=== PATIENT | male | born 1950 | race Caucasian/White ===

== ENCOUNTER → 2019-09-15 | Outpatient (CLI) | payer MEDICARE ==
[2019-09-15 10:49] LABS: POTASSIUM 4.4 MMOL/L (3.6-5.0); SODIUM 139 MMOL/L (135-145)
[2019-09-15 10:50] LABS: ALANINE AMINOTRANSFERASE 53 U/L (0-55); ALBUMIN 4.8 GM/DL (3.2-4.5); ALKALINE PHOSPHATASE 56 U/L (40-136); BILIRUBIN,TOTAL 0.4 MG/DL (0.1-1.0); BUN/CREATININE RATIO 16; CALCIUM 10.3 MG/DL (8.5-10.1); CARBON DIOXIDE 26 MMOL/L (21-32); CHLORIDE 99 MMOL/L (98-107); CREATININE SERUM 1.47 MG/DL (0.60-1.30); GFR ESTIMATED 48; GLUCOSE 116 MG/DL (70-105); TOTAL PROTEIN 7.7 GM/DL (6.4-8.2)
[2019-09-15 14:51] LABS: CHOLESTEROL 161 MG/DL (< 200); HDL CHOLESTEROL 33 MG/DL (40-60); TRIGLYCERIDES 218 MG/DL (<150); VLDL CHOLESTEROL 44 MG/DL (5-40)
== END ==
LOC: LAB FS 08:40
PROVIDERS: ATTEND Family Medicine
DX: I10 Essential (primary) hypertension (principal)
CPT/HCPCS: 36415; 80053; 80061

== ENCOUNTER → 2019-10-07 | Outpatient (CLI) | payer MEDICARE ==
[2019-10-07 13:26] LABS: CALCIUM 9.9 MG/DL (8.5-10.1); CREATININE SERUM 1.35 MG/DL (0.60-1.30); POTASSIUM 4.6 MMOL/L (3.6-5.0)
== END ==
LOC: LAB FS 12:49
PROVIDERS: ATTEND Family Medicine
DX: R79.89 Other specified abnormal findings of blood chemistry (principal)
CPT/HCPCS: 36415; 80048

== ENCOUNTER → 2020-03-30 | Outpatient (CLI) | payer MEDICARE ==
[2020-03-31 15:39] LABS: ALANINE AMINOTRANSFERASE 96 U/L (0-55); ALBUMIN 4.6 GM/DL (3.2-4.5); ALKALINE PHOSPHATASE 73 U/L (40-136); BILIRUBIN,TOTAL 0.5 MG/DL (0.1-1.0); BUN/CREATININE RATIO 12; CALCIUM 9.3 MG/DL (8.5-10.1); CARBON DIOXIDE 25 MMOL/L (21-32); CHLORIDE 104 MMOL/L (98-107); CREATININE SERUM 1.87 MG/DL (0.60-1.30); GFR ESTIMATED 36; GLUCOSE 167 MG/DL (70-105); POTASSIUM 4.8 MMOL/L (3.6-5.0); SODIUM 139 MMOL/L (135-145); TOTAL PROTEIN 7.6 GM/DL (6.4-8.2)
== END ==
LOC: LAB FS 15:41
PROVIDERS: ATTEND Family Medicine
DX: I10 Essential (primary) hypertension (principal); R73.09 Other abnormal glucose
CPT/HCPCS: 36415; 80053; 83036; 84153

== ENCOUNTER → 2020-10-07 | Outpatient (CLI) | payer MEDICARE ==
[2020-10-07 11:11] LABS: ALANINE AMINOTRANSFERASE 78 U/L (0-55); ALBUMIN 4.8 GM/DL (3.2-4.5); ALKALINE PHOSPHATASE 74 U/L (40-136); BILIRUBIN,TOTAL 0.4 MG/DL (0.1-1.0); BUN/CREATININE RATIO 15; CALCIUM 9.6 MG/DL (8.5-10.1); CARBON DIOXIDE 26 MMOL/L (21-32); CHLORIDE 100 MMOL/L (98-107); CREATININE SERUM 1.49 MG/DL (0.60-1.30); GFR ESTIMATED 47; GLUCOSE 129 MG/DL (70-105); POTASSIUM 4.9 MMOL/L (3.6-5.0); SODIUM 135 MMOL/L (135-145); TOTAL PROTEIN 7.7 GM/DL (6.4-8.2)
[2020-10-07 15:42] LABS: CHOLESTEROL 176 MG/DL (< 200); HDL CHOLESTEROL 35 MG/DL (40-60); TRIGLYCERIDES 375 MG/DL (<150); VLDL CHOLESTEROL 75 MG/DL (5-40)
== END ==
LOC: LAB FS 09:11
PROVIDERS: ATTEND Family Medicine
DX: Z12.5 Encounter for screening for malignant neoplasm of prostate (principal); I10 Essential (primary) hypertension
CPT/HCPCS: 36415; 80053; 80061; 84153

== ENCOUNTER → 2021-01-02 | Outpatient (CLI) | payer MEDICARE ==
--- NOTE | 2021-01-02 12:11 | Diagnostic Imaging Report ---
INDICATION: BILATERAL KNEE PAIN TECHNIQUE: 3 views of the bilateral knees, and 10:49 AM CORRELATION STUDY: None FINDINGS: Right knee: There is marked joint space narrowing both medially and laterally. There is rather prominent marginal osteophyte formation. Some additional intraarticular calcified loose bodies are suggested. Rather large spur like formation superior pole of patella is present. Prominent suprapatellar joint effusion is noted with calcification. TECHNIQUE: Left knee demonstrates a similar but slightly less severe findings. This includes joint space narrowing more pronounced medially than laterally. Marginal osteophyte formation particularly medially. Spur like formation superior pole of patella with a lucency at its base may reflect an ununited spur. Small suprapatellar joint effusion present. IMPRESSION: 1. Rather markedly advanced multi compartment degenerative changes both knees right significantly greater than left. 2. Given the intertubercular calcification of the right knee, nonspecific. Can be seen with underlying inflammatory processes including with gout. Consideration for fluid aspiration would be recommended of the prominent suprapatellar right knee joint effusion. Additionally, consideration may be given to a followup MRI, particularly of the right knee. Dictated by: Dictated on workstation # [id number]
== END ==
LOC: RAD FS 10:30
PROVIDERS: ATTEND Nurse Practitioner
DX: M17.11 Unilateral primary osteoarthritis, right knee (principal); M17.12 Unilateral primary osteoarthritis, left knee

== ENCOUNTER → 2021-01-10 | Outpatient (CLI) | payer MEDICARE ==
--- NOTE | 2021-01-10 12:44 | Diagnostic Imaging Report ---
Exam: CT right knee without contrast. Date: January 10, 2021. Indication: 70-year-old male, right knee pain. Surgical planning. Comparison: January 02, 2021. Technique: Axial CT images of the knee without contrast were obtained. Additional axial images were obtained of the right lower extremity for measurement purposes. All CT scans use one or more of the following dose optimizing techniques: automated exposure control, MA and/or KvP adjustment based on a patient size and exam type, or iterative reconstruction. Findings: There are limitations of the exam for diagnostic evaluation given lack of coronal and sagittal reformats. There is at least severe patellofemoral compartment joint space loss with osteophyte formation. There is a large knee joint effusion. There is high attenuation within the knee joint which could relate to chondrocalcinosis. There is a potential intra-articular body posteriorly. The medial and lateral compartments are not well assessed given lack of coronal and sagittal reformats. 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 Impression: 1. Advanced at least patellofemoral compartment arthritis with knee joint effusion and probable intra-articular body. Dictated by: Dictated on workstation # [id number]
== END ==
LOC: RAD 08:23
PROVIDERS: ATTEND Orthopaedic Surgery
DX: M17.11 Unilateral primary osteoarthritis, right knee (principal)
CPT/HCPCS: 73700

== ENCOUNTER 2021-02-15 06:14 | Outpatient (CLI) | payer MEDICARE ==
[~2021-02-15] VITALS: Ht 177.8 cm; Wt 127.0 kg
[2021-02-15 12:09] VITALS: BP 146/81
[2021-02-15 12:55] LABS: BASOPHILS % (AUTO) 1 % (0-10); EOSINOPHILS # (AUTO) 0.1 10^3/uL (0.0-0.3); EOSINOPHILS % (AUTO) 2 % (0-10); HEMATOCRIT 40 % (40-54); HEMOGLOBIN 13.6 g/dL (13.3-17.7); LYMPHOCYTES % (AUTO) 42 % (12-44); MEAN CORPUSCULAR HEMOGLOBIN 32 pg (25-34); MEAN CORPUSCULAR HGB CONC 34 g/dL (32-36); MEAN CORPUSCULAR VOLUME 95 fL (80-99); MEAN PLATELET VOLUME 9.8 fL (9.0-12.2); MONOCYTES # (AUTO) 0.5 10^3/uL (0.0-1.0); MONOCYTES % (AUTO) 10 % (0-12); NEUTROPHILS # (AUTO) 2.1 10^3/uL (1.8-7.8); NEUTROPHILS % (AUTO) 45 % (42-75); PLATELET COUNT 177 10^3/uL (130-400); WHITE BLOOD COUNT 4.6 10^3/uL (4.3-11.0)
[2021-02-15 13:07] LABS: PROTHROMBIN TIME PATIENT 13.6 SEC (12.2-14.7)
[2021-02-15 13:08] LABS: BILIRUBIN,URINE NEGATIVE (NEGATIVE); CLARITY,URINE CLEAR; COLOR,URINE YELLOW; GLUCOSE, URINE (UA) NEGATIVE (NEGATIVE); KETONES,URINE NEGATIVE (NEGATIVE); LEUKOCYTE ESTERASE ,URINE NEGATIVE (NEGATIVE); NITRITE,URINE NEGATIVE (NEGATIVE); PROTEIN,URINE NEGATIVE (NEGATIVE)
[2021-02-15 13:13] LABS: ALBUMIN 4.3 GM/DL (3.2-4.5); BILIRUBIN,TOTAL 0.3 MG/DL (0.1-1.0); CALCIUM 9.5 MG/DL (8.5-10.1); CREATININE SERUM 1.47 MG/DL (0.60-1.30); POTASSIUM 4.5 MMOL/L (3.6-5.0); TOTAL PROTEIN 7.2 GM/DL (6.4-8.2)
[2021-02-15 13:20] LABS: ERYTHROCYTE SEDIMENTATION RATE 15 MM/HR (0-30)
[2021-02-15 13:26] LABS: BACTERIA,URINE TRACE /HPF; SQUAMOUS EPITHELIAL CELL,UR RARE /HPF
[2021-02-15] MEDS ORDERED: LISI1TAB46 PO (13:32)
[2021-02-15] MEDS ORDERED: MELO15TA39 PO (13:32)
[2021-02-15] MEDS ORDERED: ALPR0.5T PO (13:32)
[2021-02-15] MEDS ORDERED: LORA-1025 PO (13:32)
[2021-02-15] MEDS ORDERED: ETAN50CA SQ (13:32)
[2021-02-15] MEDS ORDERED: OMG1KC PO (13:32)
--- NOTE | 2021-02-15 16:48 | Diagnostic Imaging Report ---
EXAM: CHEST PA/LAT (2 VIEW) INDICATION: Preop. COMPARISON: None. FINDINGS: Low lung volumes accentuate heart size. Normal central pulmonary vascularity. Mild atelectasis or infiltrate in the left lung base. No pleural effusion or pneumothorax. No acute osseous findings. IMPRESSION: 1. Mild atelectasis or infiltrate in the left lung base. 2. Low lung volumes accentuate the cardiac silhouette. Dictated by: Dictated on workstation # [id number]
== END 2021-02-15 15:00 | disposition home or self-care (01) ==
LOC: PREOP 06:14
PROVIDERS: ATTEND Orthopaedic Surgery
DX: Z01.812 Encounter for preprocedural laboratory examination (principal); Z01.810 Encounter for preprocedural cardiovascular examination; M17.0 Bilateral primary osteoarthritis of knee
CPT/HCPCS: 36415; 71046; 80053; 81000; 85025; 85610; 85652; 86850; 86900; 86901; 87081; 93005

== ENCOUNTER → 2021-02-20 | Outpatient (CLI) | payer MEDICARE ==
[~2021-02-20] MED LIST: ALPR0.5T PO; ETAN50CA SQ; LISI1TAB46 PO; LORA-1025 PO; MELO15TA39 PO; OMG1KC PO
== END ==
LOC: LAB FS 10:20
PROVIDERS: ATTEND Orthopaedic Surgery
DX: Z01.812 Encounter for preprocedural laboratory examination (principal); M17.11 Unilateral primary osteoarthritis, right knee; M17.12 Unilateral primary osteoarthritis, left knee; Z20.822 Contact with and (suspected) exposure to COVID-19
CPT/HCPCS: 87635

== ENCOUNTER 2021-02-22 05:59 | Inpatient (IN) | payer MEDICARE ==
--- NOTE | 2021-02-07 12:08 | HISTORY AND PHYSICAL ---
DATE OF SERVICE: 02/22/2021 ADMISSION HISTORY AND PHYSICAL DATE OF ADMISSION: 02/22/2021. This will be for inpatient admission on 02/22/2021 for bilateral total knee arthroplasty. The patient will require regular inpatient admission due to pain management, need for physical therapy and comorbidities. HISTORY OF PRESENT ILLNESS: The patient is a 70-year-old gentleman with progressively worsening bilateral knee pain. He reports right worse than left knee pain. He underwent an open meniscectomy in the right knee while he was in high school. He has also undergone multiple arthroscopies and injections. He reports loss of function because of the knees. Radiographs reveal severe tricompartmental osteoarthritis. Due to functional impairment and failure to improve with conservative measures, the patient has elected to proceed with surgical intervention. REVIEW OF SYSTEMS: No chest pain, no shortness of breath, no dysuria. PAST MEDICAL HISTORY: Hypertension, seasonal allergies, psoriatic arthritis, osteoarthritis, sleep apnea and hydrocele. PAST SURGICAL HISTORY: Herniorrhaphy, hydrocele repair, right hand, right knee and tonsillectomy. FAMILY HISTORY: Noncontributory. PRIMARY CARE PROVIDER: Dr. Sultana. MEDICATIONS: Alprazolam, fish oil, lisinopril, Naprosyn and cyclobenzaprine. ALLERGIES: No known drug allergies. SOCIAL HISTORY: The patient denies alcohol and tobacco use. PHYSICAL EXAMINATION: GENERAL: The patient is well-developed, well-nourished, in no acute distress. HEENT: Normocephalic, atraumatic. Pupils are equal, round and reactive to light. Oropharynx is clear. NECK: Supple, no lymphadenopathy. LUNGS: Clear to auscultation bilaterally. HEART: Regular rate and rhythm. ABDOMEN: Soft, nontender, nondistended. EXTREMITIES: The bilateral knees demonstrate moderate effusion. Range of motion is approximately 0/3/95. There is no varus valgus laxity. Negative anterior and posterior drawer. His right knee demonstrates a well-healed medial and lateral incisions. He has valgus alignment of the right knee with varus alignment of the left knee. IMPRESSION: Severe tricompartmental osteoarthritis, bilateral knees, unresponsive to conservative measures. PLAN: Bilateral total knee arthroplasties. The risks, benefits, options, ramifications and recovery have been discussed at length with the patient. He understands and wishes to proceed. Job ID: [id number] DocumentID: [id number] Dictated Date: 02/07/2021 09:57:20 Curriculum And Assessment Director Date: 02/07/2021 12:07:37 Dictated By: BRYAN JIMENEZ MD
[2021-02-22] VITALS (12 sets, daily range): BP systolic 96–174; BP diastolic 67–90
[~2021-02-22] VITALS: Ht 177.8 cm; Wt 127.0 kg
[2021-02-22] MEDS ORDERED: BUPIVACAINE 0.5% 30 ML (SENSORCAINE) VIAL ONE (06:26)
[2021-02-22] MEDS ORDERED: MIDAZOLAM 2 MG/2 ML (VERSED) VIAL ONE ×2 (06:31→06:55)
[2021-02-22] MEDS: LACTATED RINGERS 1,000 ML IV PRN ×2 (06:33→08:20)
[2021-02-22] MEDS ORDERED: CEFUROXIME INJECTION 1,500 MG in WATER (STERILE) FOR INJECTION 15 ML IV ONE (06:45)
[2021-02-22] MEDS ORDERED: LIDOCAINE PF 2% 5 ML (XYLOCAINE) VIAL ONE (06:55)
[2021-02-22] MEDS ORDERED: ONDANSETRON 4 MG/2 ML (SDV) Z0FRAN ONE (06:55)
[2021-02-22] MEDS ORDERED: fentaNYL INJ 100 MCG/2 ML AMP ONE (06:55)
[2021-02-22] MEDS ORDERED: ROCURONIUM 10 MG/ML 5 ML SYRINGE IV ONE (06:55)
[2021-02-22] MEDS ORDERED: SEVOFLURANE (ULTANE) 15 ML INHAL SOLN ONE ×4 (06:55→10:24)
[2021-02-22] MEDS ORDERED: proPOfol 200 MG/20 ML (DIPRIVAN) VIAL IV ONE (06:55)
[2021-02-22] MEDS ORDERED: ACETAMINOPHEN 325 MG TABLET PO PRN (07:15)
[2021-02-22] MEDS: NS IV 1000 ML 1,000 ML IV SCH (07:15)
[2021-02-22] MEDS ORDERED: ONDANSETRON 4 MG/2 ML (SDV) Z0FRAN IVP PRN ×2 (07:15→11:15)
[2021-02-22] MEDS ORDERED: diphenhydrAMINE 50 MG/ML INJ (BENADRYL) IVP PRN (07:15)
--- NOTE | 2021-02-22 07:29 | Progress Note-Pre Operative ---
Pre-Operative Progress Note H&P Reviewed The H&P was reviewed, patient examined and no changes noted. Date Seen by Provider: Feb 22, 2021 Time Seen by Provider: 07:20 Date H&P Reviewed: Feb 22, 2021 Time H&P Reviewed: 07:11 Pre-Operative Diagnosis: bilateral knee primary osteoarthritis BRYAN JIMENEZ MD Feb 22, 2021 07:29
--- NOTE | 2021-02-22 07:31 | Progress Note-Post Operative ---
Post-Operative Progess Note Surgeon (s)/Accounting Instructor (s) Surgeon BRYAN JIMENEZ MD Accounting Instructor: Zach Casey Pre-Operative Diagnosis bilateral knee primary osteoarthritis Post-Operative Diagnosis bilateral knee primary osteoarthritis Procedure & Operative Findings Date of Procedure 02/22/21 Procedure Performed/Findings bilateral total knee arthoplasties Anesthesia Type Geta Estimated Blood Loss Estimated blood loss (mL): minimal Specimens/Packing Specimens Removed none Packing: none BRYAN JIMENEZ MD Feb 22, 2021 07:31
--- NOTE | 2021-02-22 07:34 | D/C HH Face to Face Order ---
D/C Face to Face Orders Reconcile Patient Problems Problems Reviewed?: Yes Instructions for Patient Via [email or web address], Patient Instructions/FollowUp: three weeks Physician to follow Patient: three weeks Discharge Diet for Home: Regular Diet Patient Data-Allergies,Ht & Wt Patient Allergies: Coded Allergies: No Known Drug Allergies (Unverified , 02/22/21) Home Health Need/Face to Face Date of Face to Face: Feb 22, 2021 Clinical Findings: Muscle weakness, Pain with ambulation, Unsteady gait I have seen Pt [id number]: Yes Discharged To: Home Diagnosis/Conditions: bilateral total knee arthroplasties Patient is Homebound due to: Martha fall risk due to instabilty, Muscle weakness, Pain w/ambulation Homebound Status Due to the above stated illness, injury or surgical procedure (medical condition or diagnosis) and associated clinical findings, the patient is homebound because of his/her inability to leave home except with aid of a supportive device and/or person AND leaving the home requires a considerable and taxing effort or is medically contraindicated. Pt req the following assistanc: [facility] Nursing Orders Home Health Services Order: Physical Therapy-Evaluate & Treat DC bilateral knee alfonso and apply steri strips 03/08/21 Therapy Orders Therapy Orders: Physical Therapy, PT to assess for OT Therapy Specific Orders: Eval assistive deivces, Teach enviro modifications/safety, Gait training, Increase strength/endurance, Provider maintenance therapy, Restore ROM Certify Stmt I certify that this patient is under my care and that I, a nurse practitioner or a physician; a assistant head cashier working with me, had a face to face encounter that - meets the physician face to face encounter requirements with this patient as dated. BRYAN JIMENEZ MD Feb 22, 2021 07:34
[2021-02-22] MEDS ORDERED: TRANEXAMIC ACID 100 MG/ML 10 ML INJECTION ONE (07:45)
[2021-02-22] MEDS ORDERED: SUCCINYLCHOLINE INJ 100 MG/5 ML SYR/VIAL ONE (07:58)
[2021-02-22] MEDS ORDERED: INTRA-ARTICULAR IU ONE ×5 (08:15)
[2021-02-22] MEDS ORDERED: EPINEPHRINE IU ONE ×4 (08:30)
[2021-02-22] MEDS ORDERED: [UNRECOGNIZED DRUG - OTHER] IU ONE ×4 (08:30)
[2021-02-22] MEDS ORDERED: NS IU ONE ×4 (08:30)
[2021-02-22] MEDS ORDERED: ROPIVACAINE IU ONE ×4 (08:30)
[2021-02-22] MEDS ORDERED: NS (IVPB) 33 ML, ROPIVACAINE INJECTION 275 MG, EPINEPHrine 1 MG INJECTION 0.5 MG, morp... IU ONE ×4 (08:30)
[2021-02-22] MEDS: SENNA W/DOCUSATE (SENOKOT S) TABLET PO SCH ×2 (09:00→21:14)
[2021-02-22] MEDS ORDERED: PHENYLEPHRINE 100 MCG/ML 10 ML (ANESTHESIA) SYR ONE (09:09)
[2021-02-22] MEDS ORDERED: fentaNYL INJ 100 MCG/2 ML AMP IVP ONE (11:15)
[2021-02-22] MEDS ORDERED: morphine INJ 10 MG/ML 1ML (SYR OR VIAL) IVP ONE (11:15)
[2021-02-22] MEDS ORDERED: MEPERIDINE (DEMEROL) INJ 50 MG/ML IVP ONE (11:15)
--- NOTE | 2021-02-22 13:08 | Diagnostic Imaging Report ---
CLINICAL HISTORY: Postop bilateral total knee arthroplasties. COMPARISON: 01/02/2021. 01/10/2021. TECHNIQUE: 4 views of the bilateral knees. FINDINGS: Bilateral total knee arthroplasty changes are noted. The femoral and tibial components appear well seated. No periprosthetic fracture bilaterally. Alignment is anatomic bilaterally. Skin alfonso are seen overlying the knees. IMPRESSION: 1. Expected postsurgical changes of bilateral total knee arthroplasty. No periprosthetic fracture. Dictated by: Dictated on workstation # [id number]
[2021-02-22] MEDS: morphine PCA 100 MG/100 ML BAG IV PRN (13:25)
--- NOTE | 2021-02-22 13:34 | Progress Note ---
Standard Progress Note Progress Notes/Assess & Plan Date Seen by a Provider: Feb 22, 2021 Time Seen by a Provider: 13:33 Progress/Assessment & Plan post op check no complaints radiographs--HW well positioned without fracture BLE--2 plus DP pulse with brisk cap refill. Intact DF and PF of toes and ankle. Intact sensation to light touch throughout s/p BTKA mobilize as able BRYAN JIMENEZ MD Feb 22, 2021 13:34
--- NOTE | 2021-02-22 13:53 | Physical Therapy Evaluation ---
PT Evaluation-General Medical Diagnosis Admission Date Feb 22, 2021 at 05:59 Medical Diagnosis: bilateral knee osteoarthritis Onset Date: Feb 22, 2021 Therapy Diagnosis Therapy Diagnosis: impaired mobility and strength Precautions Precautions/Isolations: Standard Precautions Weight Bear Status Right Lower Extremity: Right Full Weight Bearing Left Lower Extremity: Left Full Weight Bearing Referral Physician: Lia Reason for Referral: Evaluation/Treatment Medical History Pertinent Medical History: HTN, OA Current History s/p bilateral TKR Reviewed History: Yes Social History Home: Single Level Current Living Status: Spouse Prior Prior Level of Function SCALE: Activities may be completed with or without assistive devices. 8-Dhvospwlan-wzqbjus completes the activity by him/herself with no assistance from a helper. 5-Set-up or Clean-up Assistance-helper sets up or cleans up; patient completes activity. [place] assists only prior to or following the activity. 4-Supervision or Touching Assistance-helper provides verbal cues and/or touching/steadying and/or contact guard assistance as patient completes activity. Assistance may be provided throughout the activity or intermittently. 3-Partial/Moderate Assistance-helper does LESS THAN HALF the effort. [place] lifts, holds or supports trunk or limbs, but provides less than half the effort. 2-Substantial/Maximal Assistance-helper does MORE THAN HALF the effort. [place] lifts or holds trunk or limbs and provides more than half the effort. 3-Gosewmftx-zexncb does ALL the effort. Patient does none of the effort to complete the activity. Or, the assistance of 2 or more helpers is required for the patient to complete the activity. If activity was not attempted, code reason: 7-Patient Refused. 9-Not Applicable-not attempted and the patient did not perform the activity before the current illness, exacerbation or injury. 10-Not Attempted due to Environmental Limitations-(lack of equipment, weather restraints, etc.). 88-Not Attempted due to Medical Conditions or Safety Concerns. Bed Mobility: 6 Transfers (B,C,W/C): 6 Gait: 6 Stairs: 6 Indoor Mobility (Ambulation): Independent Stairs: Independent Prior Devices Use: None PT Evaluation-Current Subjective Patient agrees to PT. Pain Numeric Pain Scale: 5-Moderate Pain Location: Right, Left Location Body Site: Knee Pain Description: Acute Objective Patient Orientation: Normal For Age Attachments: Oxygen, Polar Pack, IV ROM/Strength ROM Lower Extremities no formal testing (CPM set 0-60 degrees bilaterally) Strength Lower Extremities 3-/5 grossly bilateral LE (no formal testing/nerve block still in place) Integumentary/Posture Integumentary refer to nursing notes Bowel Incontinence: No Bladder Incontinence: No Posture WFL Neuromuscular (Tone, Coordination, Reflexes) grossly intact Sensory Vision: Functional Hearing: Functional Sensation Right Lower Extremit: Intact Sensation Left Lower Extremity: Intact Transfers Roll Left to Right (QC): 5 Sit to Lying (QC): 3 Lying to Sitting/Side of Bed(Q: 4 Sit to Stand (QC): 88 Chair/Cjs-sh-Hsnvd Xfer(QC): 88 Gait Does the Patient Walk?: No and Walking Goal IS indicated Mode of Locomotion: Walk Anticipated Mode of Locomotion: Walk Walk 10 feet (QC): 88 Walk 50 ft with 2 Turns(QC): 88 Walk 150 ft (QC): 88 Gait Assistive Device: FWW Balance Sitting Static: Normal Sitting Dynamic: Normal Treatment CPM 0-60 degrees bilaterally/polar pack Assessment/Needs 70 y.o. male, will be seen by skilled PT to address functional strength, mobility and bilateral TKR protocol. Rehab Potential: Fair PT Shelf Filler Goals Shelf Filler Goals PT Fpc Goals Time Frame: Mar 03, 2021 Roll Left & Right (QC): 6 Sit to Lying (QC): 6 Lying-Sitting on Side/Bed(QC): 6 Sit to Stand (QC): 6 Chair/Kiy-ro-Ociob Xfer(QC): 6 Toilet Transfer (QC): 6 Does the Patient Walk: Yes Walk 10 feet (QC): 6 Walk 50ft with 2 Turns (QC): 6 Walk 150 ft (QC): 6 Walking 10ft on Uneven Surface: 6 1 Step (curb) (QC): 4 4 Steps (QC): 4 PT Plan Problem List Problem List: Activity Tolerance, Functional Strength, Balance, Gait, Transfer, ROM Treatment/Plan Treatment Plan: Continue Plan of Care Treatment Plan: Bed Mobility, Education, Functional Activity Bg, Functional Strength, Gait, Safety, Therapeutic Exercise, Transfers Treatment Duration: Feb 22, 2021 Frequency: 11 times per week Estimated Hrs Per Day: .5 hour per day Patient and/or Family Agrees t: Yes Safety Risks/Education Patient Education: W/C Management Discharge Recommendations Therapy Discharge Recommendati: Home & Family, Post Acute PT Time/GCodes Time In: 1300 Time Out: 1320 Total Billed Treatment Time: 20 Total Billed Treatment 1 visit EVModC 20 min CPM/PADS TONO CANO PT Feb 22, 2021 13:53
[2021-02-22] MEDS: CEFUROXIME INJECTION 750 MG in WATER (STERILE) FOR INJECTION 10 ML IV SCH ×2 (16:08→23:23)
[2021-02-22] MEDS ORDERED: ARTIFICAL TEARS 0.4 ML UNIT DOSE (REFRESH PLUS) OU PRN (16:30)
--- NOTE | 2021-02-22 17:19 | OPERATIVE REPORT ---
DATE OF SERVICE: 02/22/2021 PREOPERATIVE DIAGNOSES: 1. Right knee primary osteoarthritis. 2. Left knee primary osteoarthritis. POSTOPERATIVE DIAGNOSES: 1. Right knee primary osteoarthritis. 2. Left knee primary osteoarthritis. PROCEDURES: 1. Right total knee arthroplasty. 2. Left total knee arthroplasty. SURGEON: Car Jimenez MD ENGAGEMENT DIRECTOR: Zach Casey, who assisted throughout the procedure and closed the incisions. ANESTHESIA: General endotracheal by Zach Campoverde CRNA. TOURNIQUET TIME: 82 minutes at 300 mmHg on the right knee and 68 minutes at 300 mmHg on the left knee. DRAINS: None. COMPLICATIONS: None. ESTIMATED BLOOD LOSS: Minimal. POSTOPERATIVE PLAN: Routine protocol. The patient was transferred to the recovery room awake and in stable condition. MATERIALS: MicroPort cemented size 6 femur, cemented size 6+ tibia base with a 10 mm insert and cemented size 35 patellar button bilaterally. STATEMENT OF MEDICAL NECESSITY: The patient is a 70-year-old gentleman with longstanding bilateral knee pain. Radiographs revealed severe tricompartmental osteoarthritis with slight valgus deformity on the right and varus deformity on the left. He had undergone treatment with injections, arthroscopies and anti-inflammatories without relief. Due to functional impairment and failure to improve with conservative measures, the patient elected to proceed with surgical intervention. DESCRIPTION OF PROCEDURE: After risks and benefits of procedure were discussed and questions were answered, informed consent was signed and placed on chart, the operative sites were confirmed in the preoperative holding area initialed by the surgeon. The patient was then transferred to the operating room and after adequate levels of general endotracheal anesthetic were obtained, a timeout was called, confirming the operative site. The right lower extremity was prepped and draped in the usual sterile fashion with the leg elevated and the knee flexed, tourniquet was inflated to 300 mmHg. Standard anterior approach was utilized. Hemostasis was obtained with cautery. Medial parapatellar arthrotomy was performed leaving 1 cm cuff on the patella for later reattachment. A portion of the fat pad was resected. Subperiosteal release was performed in the proximal medial tibia being careful to stay on the bony surface. The patella was prepared by resecting 10 mm off the undersurface using the freehand technique. The CT/computer generated guide was then placed on the femur. This was then pinned into position and the distal cut was made. A 6 cutting block was placed and cuts were made from posterior to anterior. A subperiosteal release was then carefully performed on the proximal and distal femur being careful to stay on the bony surface. The tibia was then prepared by placing the cutting block. The drop loyd transected the intermalleolar axis and this was felt to be in excellent position. The cut was made. A 6+ baseplate was placed and the drop loyd transected, the intermalleolar axis was then prepared with the drill and keel punch. Guide was placed and the patella drill holes were placed and the trials were then inserted after the trochlear cut was made on the femoral trial. Full extension was easily obtained under 20 degrees of flexion with gravity was easily obtained. There was no anterior/posterior or medial/lateral laxity in flexion or extension. The trials were removed. The joint was copiously irrigated with pulse lavage. The periarticular block was placed in the posterior capsule, medial and lateral retinaculum extensor mechanism, subcutaneous tissues. The bone ends were then irrigated and dried and the tibial baseplate was cemented into position. Excessive cement was removed. Superior surface was irrigated and dried and the insert was placed. Distal femur was irrigated and dried and the femoral prosthesis was cemented into position. Excessive cement was removed. The knee was brought out in full extension until the cement had cured. The undersurface of patella was irrigated and dried and the patellar button was cemented into position. Once the cement had cured, the knee was taken through range of motion. Full extension was easily obtained under 20 degrees of flexion with gravity was easily obtained. There was no anterior/posterior or medial/lateral laxity in flexion or extension and the patella tracked well. Joint was further irrigated with pulse lavage. The arthrotomy was closed with #2 Tevdek in waescs-uy-qhbiu interrupted fashion. The knee was flexed. Patella tracked well with no new tension at the repair site. The subcutaneous tissues were irrigated using a total of 6 liters throughout the procedure, 0 Vicryl was used to deep subcutaneous tissue, 2-0 Vicryl for the superficial subcutaneous tissue and alfonso used on the skin. A soft dressing was applied. The tourniquet was deflated. The left lower extremity was then prepped and draped in the usual sterile fashion. A separate set was used for the left knee. After prepping and draping with the leg elevated and the knee flexed, the tourniquet was inflated to 300 mmHg. A standard anterior approach was utilized. Hemostasis was obtained with cautery. Medial parapatellar arthrotomy was performed leaving 1 cm cuff on the patella for later reattachment. A portion of the fat pad was resected. Subperiosteal release was performed in the proximal medial tibia being careful to stay on the bony surface. ACL was resected. Intramedullary guide was passed into the femur. The distal cutting block was placed. Distal femur was sized to a size 6. The 6 cutting block was placed parallel to the epicondylar axis and cuts were made from posterior to anterior. Subperiosteal release was then carefully performed on the posterior distal femur, being careful to stay on the bony surface. Intramedullary guide was then passed into the tibia. The drop loyd transected the intermalleolar axis from the cutting block, the cut was made. The 6+ baseplate was placed and then prepared with the drill and keel punch after ensuring that the drop loyd transected the intermalleolar axis and the femoral trial was placed and trochlear cut was made. The patella was prepared by resecting 10 mm off the undersurface using the freehand technique and the peg guide was placed. The peg holes were drilled. The 35 button trial was placed. Knee was taken through range of motion. Full extension was easily obtained under 20 degrees of flexion with gravity was easily obtained. There was no anterior/posterior or medial/lateral laxity in flexion or extension. The trials were removed. The joint was irrigated with pulse lavage. Periarticular block was placed in the posterior capsule, medial and lateral retinaculum extensor mechanism, subcutaneous tissues. Bone ends were irrigated and dried and the tibial baseplate was cemented into position. Excessive cement was removed. Superior surface was irrigated and dried and the polyethylene insert was placed. The distal aspect of the femur was irrigated and dried and the femoral prosthesis was cemented into position. Excessive cement was removed. Once the knee was brought in full extension, the undersurface of the patella was irrigated and dried and the patellar button was cemented into position. Excessive cement was removed. Once the cement had cured, the knee was taken through range of motion. Full extension was easily obtained under 20 degrees of flexion with gravity was easily obtained. There was no anterior/posterior or medial/lateral laxity in flexion or extension and the patella tracked well. The joint was further irrigated with pulse lavage. Arthrotomy was closed with #2 Tevdek in mcptus-gm-qcnkx interrupted fashion. The knee was flexed. The repair was stable. Subcutaneous tissues were further irrigated using a total of 6 liters throughout the procedure. A 0 Vicryl was used to deep subcutaneous tissue, 2-0 Vicryl for the superficial subcutaneous tissue, alfonso used on the skin. A soft dressing was applied. Tourniquet was deflated and the patient was transferred to the recovery room awake and in stable condition. Job ID: [id number] DocumentID: [id number] Dictated Date: 02/22/2021 11:00:28 Puppet Developer Date: 02/22/2021 17:18:46 Dictated By: CAR JIMENEZ MD
[2021-02-22] MEDS: oxyCODONE/APAP 5/325MG (PERCOCET 5) TABLET PO PRN ×2 (21:15→23:26)
[2021-02-23] VITALS (7 sets, daily range): BP systolic 133–171; BP diastolic 68–79
[2021-02-23] MEDS: NS IV 1000 ML 1,000 ML IV SCH ×4 (00:08→23:26)
[2021-02-23] MEDS: oxyCODONE/APAP 5/325MG (PERCOCET 5) TABLET PO PRN ×7 (04:35→19:18)
[2021-02-23] MEDS: MULTIVIT W/MINERALS TAB (THERAGRAN M) PO SCH (06:25)
[2021-02-23 06:31] LABS: HEMOGLOBIN 12.6 g/dL (13.3-17.7)
--- NOTE | 2021-02-23 08:06 | Progress Note ---
Standard Progress Note Progress Notes/Assess & Plan Date Seen by a Provider: Feb 23, 2021 Time Seen by a Provider: 08:05 Progress/Assessment & Plan post op check no complaints radiographs--HW well positioned without fracture BLE--2 plus DP pulse with brisk cap refill. Intact DF and PF of toes and ankle. Intact sensation to light touch throughout s/p BTKA mobilize as able Final Diagnosis no complaints Vital Signs Date Time Temp Pulse Resp B/P (MAP) Pulse Ox O2 Delivery O2 Flow Rate FiO2 02/23/21 07:46 92 Nasal Cannula 1.00 02/23/21 06:26 16 02/23/21 04:46 93 1.00 02/23/21 04:20 37.4 92 16 148/74 (98) 98 Room Air 02/23/21 00:27 88 165/75 (105) 02/22/21 23:20 37.4 98 20 174/89 (117) 98 Room Air 02/22/21 21:50 18 02/22/21 21:35 Nasal Cannula 1.00 02/22/21 19:47 37.1 79 20 143/80 (101) 97 Room Air 02/22/21 17:27 96 1.00 02/22/21 16:34 35.7 76 18 149/89 (109) 99 Nasal Cannula 0.50 02/22/21 12:17 35.2 72 17 133/67 (89) 99 Nasal Cannula 2.00 02/22/21 12:05 Room Air 02/22/21 12:00 36.2 15 96/72 (80) 98 Room Air 02/22/21 11:50 14 133/70 (91) 97 Room Air 02/22/21 11:45 OxyMask 2 02/22/21 11:40 15 156/70 (98) 94 Nasal Cannula 2 02/22/21 11:30 OxyMask 3 02/22/21 11:30 15 103/71 (82) 95 Nasal Cannula 3 02/22/21 11:20 15 110/76 (87) 92 OxyMask 6 02/22/21 11:15 OxyMask 8 02/22/21 11:10 16 123/74 (90) 92 OxyMask 8 02/22/21 11:06 36.1 16 123/74 (90) 92 T Piece 10 02/22/21 11:06 T Piece 8 I & O 02/23/21 07:00 Intake Total 3575 ml Output Total 2525 ml Balance 1050 ml Laboratory Tests Test 02/23/21 05:33 Range/Units Hemoglobin 12.6 L 13.3-17.7 g/dL Hematocrit 38 L 40-54 % BLE--dressings intact. NVI distally. No calf tenderness s/p BTKA PT/OT BRYAN JIMENEZ MD Feb 23, 2021 08:06
[2021-02-23] MEDS: ASPIRIN E.C. 81 MG (ECOTRIN) TAB PO SCH (08:26)
[2021-02-23] MEDS: SENNA W/DOCUSATE (SENOKOT S) TABLET PO SCH ×2 (08:26→19:18)
[2021-02-23] MEDS: ENOXAPARIN 30 MG/0.3 ML (LOVENOX) SYR SC SCH ×2 (08:28→19:18)
--- NOTE | 2021-02-23 09:32 | Consultation - Hospitalist ---
HPI History of Present Illness: HPI/Chief Complaint Pt is a 70yoCM with a PMH of CANDE and HTN who was admitted for bilateral TKA. I am consulted for medical management. He underwent surgery on 02/22. He reports he is doing well. Pain is present but well controlled. Has not yet had a BM but did pass gas last night. Was already up working with therapy. Source: patient Date Seen 02/23/21 Attending Physician Car Fitzgerald MD PCP Allison Sultana MD Referring Physician Date of Admission Feb 22, 2021 at 05:59 Home Medications & Allergies Home Medications Reviewed patient Home Medication Reconciliation performed by pharmacy medication reconciliations analytical laboratory technician and/or nursing. Patients Allergies have been reviewed. Allergies Allergies Coded Allergies No Known Drug Allergies (Unverified02/22/21) Past Ysexswl-Xnrpjs-Ghhwcv Hx Patient Social History Tobacco Use?: No Smoking Status: Former Smoker Smokeless Tobacco Frequency: Never a User Use of E-Cig and/or Vaping Mani: Never a User Substance use?: No Alcohol Use?: Yes Alcohol type: Beer Alcohol Frequency: Once in a while Pt feels they are or have been: No Immunizations Up To Date First/Initial COVID19 Vaccinat: OCTOBER 2020 Second COVID19 Vaccination Khalif: NOVEMBER 2020 Tetanus Booster (TDap): Unknown Seasonal Allergies Seasonal Allergies: Yes Current Status Advance Directives: No Communicates: Verbally Primary Language: Russian Preferred Spoken Language: Russian Is interpretation needed?: No Sensory deficits: Vision impairment Implanted or Applied Medical D: CPAP Past Medical History Surgeries: Tonsillectomy Sleep Apnea Currently Using CPAP: Yes Currently Using BIPAP: No Hypertension Arthritis Glaucoma Skin Psoriasis Blood Disorders: No Family Medical History Reviewed Nursing Family Hx Review of Systems Constitutional: No chills, No fever EENTM: no symptoms reported Respiratory: no symptoms reported Cardiovascular: no symptoms reported Gastrointestinal: constipation Genitourinary: no symptoms reported Musculoskeletal: see HPI Skin: no symptoms reported Psychiatric/Neurological: No Symptoms Reported Physical Exam Physical Exam Vital Signs Vital Signs - First Documented 02/22/21 07:09 Temp 36.2 Pulse 74 Resp 20 B/P (MAP) 158/90 (112) Pulse Ox 97 O2 Delivery Room Air Capillary Refill : Height, Weight, BMI Height: '" Weight: lbs. oz. kg; 40.17 BMI Method: General Appearance: No Apparent Distress, WD/WN, Obese HEENT: PERRL/EOMI, Moist Mucous Membranes Neck: Normal Inspection, Supple Respiratory: Lungs Clear, No Accessory Muscle Use, No Respiratory Distress Cardiovascular: Regular Rate, Rhythm, No Murmur Gastrointestinal: Normal Bowel Sounds, Non Tender, Soft Extremity: Normal Capillary Refill, No Calf Tenderness, No Pedal Edema Neurologic/Psychiatric: Alert, Oriented x3, Normal Mood/Affect Results Results/Procedures Labs Laboratory Tests 02/23/21 05:33 Patient resulted labs reviewed. Assessment/Plan Assessment and Plan Assess & Plan/Chief Complaint OA s/p bilateral TKA Management per primary pain regimen bowel regimen lovenox PT/OT HTN BP was somewhat low yesterday but increasing today Resume home lisinopril Dispo: Dr Fitzgerald already wrote for home health orders Diagnosis/Problems Diagnosis/Problems (1) Osteoarthritis of knees, bilateral Qualifiers: Osteoarthritis type: primary Qualified Codes: M17.0 - Bilateral primary osteoarthritis of knee JAZIEL MOONEY MD Feb 23, 2021 09:32
[2021-02-23] MEDS ORDERED: lisINopril 20 MG (PRINIVIL) TABLET PO ONE (09:45)
--- NOTE | 2021-02-23 10:37 | Physical Therapy Daily Note ---
PT Daily Note-Current Subjective Patient agrees to PT. Rates bilateral knee pain 5/10 at rest and 8/10 with activity with pain medication and KIT ASSEMBLER use. Pain Numeric Pain Scale: 8 Location: Right, Left Location Body Site: Knee Mental Status Patient Orientation: Normal For Age Attachments: Polar Pack, IV Transfers SCALE: Activities may be completed with or without assistive devices. 0-Hdgvaqsgab-ubgtzsj completes the activity by him/herself with no assistance from a helper. 5-Set-up or Clean-up Assistance-helper sets up or cleans up; patient completes activity. [place] assists only prior to or following the activity. 4-Supervision or Touching Assistance-helper provides verbal cues and/or touching/steadying and/or contact guard assistance as patient completes activity. Assistance may be provided throughout the activity or intermittently. 3-Partial/Moderate Assistance-helper does LESS THAN HALF the effort. [place] lifts, holds or supports trunk or limbs, but provides less than half the effort. 2-Substantial/Maximal Assistance-helper does MORE THAN HALF the effort. [place] lifts or holds trunk or limbs and provides more than half the effort. 0-Cagrbwkri-sjwvhz does ALL the effort. Patient does none of the effort to complete the activity. Or, the assistance of 2 or more helpers is required for the patient to complete the activity. If activity was not attempted, code reason: 7-Patient Refused. 9-Not Applicable-not attempted and the patient did not perform the activity before the current illness, exacerbation or injury. 10-Not Attempted due to Environmental Limitations-(lack of equipment, weather restraints, etc.). 88-Not Attempted due to Medical Conditions or Safety Concerns. Sit to Lying (QC): 6 Lying to Sitting/Side of Bed(Q: 6 Sit to Stand (QC): 3 Chair/Zuc-gw-Sbdvz Xfer(QC): 4 Weight Bearing Right Lower Extremity: Right Full Weight Bearing Left Lower Extremity: Left Full Weight Bearing Gait Training Does the Patient Walk?: Yes Distance: 50' x 1/200' x 1 Walk 10 feet (QC): 4 Walk 50 ft with 2 Turns(QC): 4 Walk 150 ft (QC): 4 Gait Assistive Device: FWW slow and antalgic Exercises Supine Ex: Ankle pumps, Quad Set, Heel Slides, Straight leg raise Supine Reps: 12 Seated Therapy Exercises: Long arc quads Seated Reps: 15 Assessment Patient tolerated treatment well and is in bed after ambulating 200'. Patient lacks 20 degrees extension bilaterally. PT Milled Lumber Grader Goals Prison Goals PT Prison Goals Time Frame: Mar 03, 2021 Roll Left & Right (QC): 6 Sit to Lying (QC): 6 Lying-Sitting on Side/Bed(QC): 6 Sit to Stand (QC): 6 Chair/Ret-wx-Xsgay Xfer(QC): 6 Toilet Transfer (QC): 6 Does the Patient Walk: Yes Walk 10 feet (QC): 6 Walk 50ft with 2 Turns (QC): 6 Walk 150 ft (QC): 6 Walking 10ft on Uneven Surface: 6 1 Step (curb) (QC): 4 4 Steps (QC): 4 PT Plan Treatment/Plan Treatment Plan: Continue Plan of Care Treatment Plan: Bed Mobility, Education, Functional Activity Bg, Functional Strength, Gait, Safety, Therapeutic Exercise, Transfers Treatment Duration: Mar 03, 2021 Frequency: 11 times per week Estimated Hrs Per Day: .5 hour per day Patient and/or Family Agrees t: Yes Time/GCodes Time In: 800 Time Out: 840 Total Billed Treatment Time: 40 Total Billed Treatment 1 visit EX 15 min GT x 2 25 min TONO CANO PT Feb 23, 2021 10:37
--- NOTE | 2021-02-23 12:13 | Occupational Therapy Eval ---
OT Evaluation-General/PLF Medical Diagnosis Admission Date Feb 22, 2021 at 05:59 Medical Diagnosis: bilateral knee osteoarthritis Onset Date: Feb 22, 2021 Therapy Diagnosis Therapy Diagnosis: decreased ADL status Precautions Precautions/Isolations: Standard Precautions Weight Bear Status Weight Bearing Restriction: Weight Bearing/Tolerated Location Restriction: LE Bilateral Referral Physician: Lia Referral Reason: Evaluation/Treatment Medical History Pertinent Medical History: HTN, OA Additional Medical History HTN, arthritis, OA, sleep apnea, hydrocele Current History s/p Bilateral TKA 02/22/21 Social History Home: Single Level Current Living Status: Spouse ADL-Prior Level of Function SCALE: Activities may be completed with or without assistive devices. 3-Igyzifjgns-ebyflue completes the activity by him/herself with no assistance f rom a helper. 5-Set-up or Clean-up Assistance-helper sets up or cleans up; patient completes activity. [place] assists only prior to or following the activity. 4-Supervision or Touching Assistance-helper provides verbal cues and/or touching/steadying and/or contact guard assistance as patient completes activity. Assistance may be provided throughout the activity or intermittently. 3-Partial/Moderate Assistance-helper does LESS THAN HALF the effort. [place] lifts, holds or supports trunk or limbs, but provides less than half the effort. 2-Substantial/Maximal Assistance-helper does MORE THAN HALF the effort. [place] lifts or holds trunk or limbs and provides more than half the effort. 6-Dbkishrvy-nuhrmk does ALL the effort. Patient does none of the effort to complete the activity. Or, the assistance of 2 or more helpers is required for the patient to complete the activity. If activity was not attempted, code reason: 7-Patient Refused. 9-Not Applicable-not attempted and the patient did not perform the activity before the current illness, exacerbation or injury. 10-Not Attempted due to Environmental Limitations-(lack of equipment, weather restraints, etc.). 88-Not Attempted due to Medical Conditions or Safety Concerns. ADL PLOF Comments Pt reports IND with ADLs and functional mobility at PLOF, no AD/AE. Self Care: Independent Functional Cognition: Independent DME/Equipment: Bath Chair, Shower OT Current Status Subjective Pt laying in bed, agreeable to OT evaluation and tx. Mental Status/Objective Patient Orientation: Normal For Age Attachments: IV, Other-See Comments (CPM) Current Glasses/Contacts: Yes Hearing Aids: No Dentures/Partials: Yes Hand Dominance: Right Upper Extremity ROM WFL Upper Extremity Coordination WFL Upper Extremity Sensation WFL, some numbness reported median nerve distribution LUE Upper Extremity Strength grossly 4/5 ADL-Treatment Eating (QC): 6 (per pt report) Oral Hygiene (QC): 5 (based on clincial judgement) Upper Body Dressing (QC): 5 (based on clincial judgement) Other Treatments Pt laying in bed, agreeable to OT evaluation/tx. OT educated pt on purpose and benefit of OT, he verbalized understanding. Pt provided information about PLOF and home set up and participated in UE screen. He states he just ambulated in hallways with PT prior to OT arrival, declines OOB activity at this time, declines ADLs. OT educated pt on UE exercises in order to increase strength and activity tolerance, educating pt to complete shoulder flexion, elbow flexion/extension and finger flexion/extension. Pt verbalized and demo'd understanding. Pt reports he has no concerns with ability to complete ADLs upon discharge as his will be able to assist as needed. OT informed pt OT will check back tomorrow for tx and address any further concerns, he verbalized agreement. Post tx, pt laying in bed, call light in reach and all needs met. Education OT Patient Education: Correct positioning, Energy conservation, Exercise program, Modified ADL techniques, Progress toward Goal/Update tx plan, Purpose of tx/functional activities, Rehab process Teaching Recipient: Patient Teaching Methods: Discussion Response to Teaching: Verbalize Understanding OT Skilled Nursing Goals Skilled Nursing Goals Time Frame: Mar 03, 2021 Eating (QC): 6 Oral Hygiene (QC): 6 Toileting Hygiene (QC): 4 Shower/Bathe Self (QC): 4 Upper Body Dressing (QC): 6 Lower Body Dressing (QC): 4 On/Off Footwear (QC): 4 Additional Goals: 1-Demonstrate ADL Tasks, 2-Verbalize Understanding, 3- ImproveStrength/Bg 1=Demonstrate adherence to instructed precautions during ADL tasks. 2=Patient will verbalize/demonstrate understanding of assistive devices/modifications for ADL. 3=Patient will improve strength/tolerance for activity to enable patient to perform ADL's. OT Education/Plan Problem List/Assessment Assessment: Decreased Activ Tolerance, Decreased UE Strength, Impaired Funct Balance, Impaired I ADL's, Impaired Self-Care Skills Pt would benefit from short term skilled OT services in order to address concerns with ADL function upon returning home. Discharge Recommendations Plan/Recommendations: Continue POC Treatment Plan/Plan of Care Patient would benefit from OT for education, treatment and training to promote independence in ADL's, mobility, safety and/or upper extremity function for ADL's. Plan of Care: ADL Retraining, Functional Mobility, UE Funct Exercise/Act Treatment Duration: Mar 03, 2021 Frequency: 5 times per week Estimated Hrs Per Day: .25 hour per day Rehab Potential: Fair Time/GCodes Start Time: 10:58 Stop Time: 11:08 Total Time Billed (hr/min): 10 Billed Treatment Time 1, VASU ESTRADA OT Feb 23, 2021 12:13
--- NOTE | 2021-02-23 13:34 | Anesthesia-General Post-Op ---
General Patient Condition Mental Status/LOC: Same as Preop Cardiovascular: Satisfactory Nausea/Vomiting: Absent Respiratory: Satisfactory Pain: Controlled Complications: Absent Post Op Complications Complications None Follow Up Care/Instructions Patient Instructions None needed. Anesthesia/Patient Condition Patient Condition Patient is doing well, no complaints, stable vital signs, no apparent adverse anesthesia problems. No complications reported per nursing. JUVENAL LIM CRNA Feb 23, 2021 13:34
--- NOTE | 2021-02-23 14:42 | Physical Therapy Daily Note ---
PT Daily Note-Current Subjective Patient agrees to PT. 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 5-Nqjvrnpcdq-bxbhfsh completes the activity by him/herself with no assistance fr om a helper. 5-Set-up or Clean-up Assistance-helper sets up or cleans up; patient completes activity. [place] assists only prior to or following the activity. 4-Supervision or Touching Assistance-helper provides verbal cues and/or touching/steadying and/or contact guard assistance as patient completes activity. Assistance may be provided throughout the activity or intermittently. 3-Partial/Moderate Assistance-helper does LESS THAN HALF the effort. [place] lifts, holds or supports trunk or limbs, but provides less than half the effort. 2-Substantial/Maximal Assistance-helper does MORE THAN HALF the effort. [place] lifts or holds trunk or limbs and provides more than half the effort. 6-Iqklvdpok-ipaoqr does ALL the effort. Patient does none of the effort to complete the activity. Or, the assistance of 2 or more helpers is required for the patient to complete the activity. If activity was not attempted, code reason: 7-Patient Refused. 9-Not Applicable-not attempted and the patient did not perform the activity before the current illness, exacerbation or injury. 10-Not Attempted due to Environmental Limitations-(lack of equipment, weather restraints, etc.). 88-Not Attempted due to Medical Conditions or Safety Concerns. Lying to Sitting/Side of Bed(Q: 4 Sit to Stand (QC): 4 Toilet Transfer (QC): 4 CGA for safety Weight Bearing Right Lower Extremity: Right Full Weight Bearing Left Lower Extremity: Left Full Weight Bearing Gait Training Does the Patient Walk?: Yes Distance: 15' Walk 10 feet (QC): 4 Gait Assistive Device: FWW Exercises Supine Ex: Ankle pumps, Quad Set, Heel Slides, Straight leg raise Supine Reps: 12 Assessment Patient improving with treatment plan. Increase activity as tolerated by patient. bilateral knee extension improving PT Fdc Goals Fdc Goals PT Fdc Goals Time Frame: Mar 03, 2021 Roll Left & Right (QC): 6 Sit to Lying (QC): 6 Lying-Sitting on Side/Bed(QC): 6 Sit to Stand (QC): 6 Chair/Vxi-vg-Grxls Xfer(QC): 6 Toilet Transfer (QC): 6 Does the Patient Walk: Yes Walk 10 feet (QC): 6 Walk 50ft with 2 Turns (QC): 6 Walk 150 ft (QC): 6 Walking 10ft on Uneven Surface: 6 1 Step (curb) (QC): 4 4 Steps (QC): 4 PT Plan Treatment/Plan Treatment Plan: Continue Plan of Care Treatment Plan: Bed Mobility, Education, Functional Activity Bg, Functional Strength, Gait, Safety, Therapeutic Exercise, Transfers Treatment Duration: Mar 03, 2021 Frequency: 11 times per week Estimated Hrs Per Day: .5 hour per day Patient and/or Family Agrees t: Yes Time/GCodes Time In: 1405 Time Out: 1423 Total Billed Treatment Time: 18 Total Billed Treatment 1 visit FA 18 min TONO CANO PT Feb 23, 2021 14:42
[2021-02-23] MEDS: morphine PCA 100 MG/100 ML BAG IV PRN (23:27)
[2021-02-24] MEDS: oxyCODONE/APAP 5/325MG (PERCOCET 5) TABLET PO PRN ×9 (00:03→19:06)
[2021-02-24 04:50] VITALS: BP 128/65
[2021-02-24] MEDS: MULTIVIT W/MINERALS TAB (THERAGRAN M) PO SCH (05:47)
[2021-02-24 05:58] LABS: HEMOGLOBIN 10.7 g/dL (13.3-17.7)
--- NOTE | 2021-02-24 07:06 | Progress Note ---
Standard Progress Note Progress Notes/Assess & Plan Date Seen by a Provider: Feb 24, 2021 Time Seen by a Provider: 07:05 Progress/Assessment & Plan post op check no complaints radiographs--HW well positioned without fracture BLE--2 plus DP pulse with brisk cap refill. Intact DF and PF of toes and ankle. Intact sensation to light touch throughout s/p BTKA mobilize as able Final Diagnosis no complaints Vital Signs Date Time Temp Pulse Resp B/P (MAP) Pulse Ox O2 Delivery O2 Flow Rate FiO2 02/24/21 06:25 94 Nasal Cannula 3.00 02/24/21 05:47 18 02/24/21 04:50 37.2 104 20 128/65 (86) 96 Nasal Cannula 3.00 02/24/21 01:57 91 Nasal Cannula 3.00 02/23/21 23:50 37.4 102 18 133/71 (91) 95 Nasal Cannula 3.00 02/23/21 23:27 36.5 18 02/23/21 19:23 36.5 94 18 171/77 (108) 96 Nasal Cannula 3.00 02/23/21 19:15 Nasal Cannula 3.00 02/23/21 18:43 94 Nasal Cannula 3.00 02/23/21 17:27 18 02/23/21 16:10 36.2 95 18 166/74 (104) 96 Nasal Cannula 3.00 02/23/21 14:54 90 Nasal Cannula 3.00 02/23/21 14:53 94 Nasal Cannula 1.00 02/23/21 11:46 35.8 91 18 170/68 (102) 92 Nasal Cannula 2.00 02/23/21 09:00 Nasal Cannula 1.00 02/23/21 08:00 36.8 100 17 144/79 (100) 95 Room Air 02/23/21 07:46 92 Nasal Cannula 1.00 I & O 02/24/21 07:00 Intake Total 3785 ml Output Total 1850 ml Balance 1935 ml Laboratory Tests Test 02/24/21 05:50 Range/Units Hemoglobin 10.7 L 13.3-17.7 g/dL Hematocrit 33 L 40-54 % BLE--incisions clean and dry. no calf tendeness. Neg Dago's Neg SLR s/p BTKA progressing well continue PT/OT Likely DC tomorrow BRYAN JIMENEZ MD Feb 24, 2021 07:06
[2021-02-24] MEDS ORDERED: morphine INJ 4 MG/ML 1 ML (VIAL/SYRINGE) IVP PRN (07:15)
[2021-02-24 07:54] VITALS: BP 120/59
[2021-02-24] MEDS: SENNA W/DOCUSATE (SENOKOT S) TABLET PO SCH ×2 (08:11→20:35)
[2021-02-24] MEDS: ASPIRIN E.C. 81 MG (ECOTRIN) TAB PO SCH (08:11)
[2021-02-24] MEDS: lisINopril 20 MG (PRINIVIL) TABLET PO SCH (08:11)
[2021-02-24] MEDS: ENOXAPARIN 30 MG/0.3 ML (LOVENOX) SYR SC SCH ×2 (08:11→20:35)
--- NOTE | 2021-02-24 10:03 | Physical Therapy Daily Note ---
PT Daily Note-Current Subjective Patient agrees to PT. Pain Numeric Pain Scale: 7 Location: Right, Left Location Body Site: Knee Pain Description: Acute Mental Status Patient Orientation: Normal For Age Transfers SCALE: Activities may be completed with or without assistive devices. 4-Tnlxbpukbp-wassfrt completes the activity by him/herself with no assistance from a helper. 5-Set-up or Clean-up Assistance-helper sets up or cleans up; patient completes activity. [place] assists only prior to or following the activity. 4-Supervision or Touching Assistance-helper provides verbal cues and/or touching/steadying and/or contact guard assistance as patient completes a ctivity. Assistance may be provided throughout the activity or intermittently. 3-Partial/Moderate Assistance-helper does LESS THAN HALF the effort. [place] lifts, holds or supports trunk or limbs, but provides less than half the effort. 2-Substantial/Maximal Assistance-helper does MORE THAN HALF the effort. [place] lifts or holds trunk or limbs and provides more than half the effort. 7-Uuymzgjzx-pufxlh does ALL the effort. Patient does none of the effort to complete the activity. Or, the assistance of 2 or more helpers is required for the patient to complete the activity. If activity was not attempted, code reason: 7-Patient Refused. 9-Not Applicable-not attempted and the patient did not perform the activity before the current illness, exacerbation or injury. 10-Not Attempted due to Environmental Limitations-(lack of equipment, weather restraints, etc.). 88-Not Attempted due to Medical Conditions or Safety Concerns. Lying to Sitting/Side of Bed(Q: 5 Sit to Stand (QC): 4 (SBA) Chair/Mje-fe-Eubez Xfer(QC): 5 Toilet Transfer (QC): 5 Weight Bearing Right Lower Extremity: Right Full Weight Bearing Left Lower Extremity: Left Full Weight Bearing Gait Training Does the Patient Walk?: Yes Distance: 200' x 2 Walk 10 feet (QC): 5 Walk 50 ft with 2 Turns(QC): 5 Walk 150 ft (QC): 5 Gait Assistive Device: FWW very slow and antalgic Stair Training Stair Training: Handrails/: 2 handrails #of Steps: 4 1 Step (curb) (QC): 4 4 Steps (QC): 4 Stairs: Pattern: Step to Exercises Supine Ex: Ankle pumps, Quad Set, Heel Slides, Straight leg raise Supine Reps: 15 Seated Therapy Exercises: Long arc quads Seated Reps: 15 Assessment Patient improving with treatment plan and plans to dismiss to home tomorrow after therapy. bilateral knee flexion/extension improving. PT Detention Goals Detention Goals PT Screener And Blender Goals Time Frame: Mar 03, 2021 Roll Left & Right (QC): 6 Sit to Lying (QC): 6 Lying-Sitting on Side/Bed(QC): 6 Sit to Stand (QC): 6 Chair/Wtx-qr-Mtvdg Xfer(QC): 6 Toilet Transfer (QC): 6 Does the Patient Walk: Yes Walk 10 feet (QC): 6 Walk 50ft with 2 Turns (QC): 6 Walk 150 ft (QC): 6 Walking 10ft on Uneven Surface: 6 1 Step (curb) (QC): 4 4 Steps (QC): 4 PT Plan Treatment/Plan Treatment Plan: Continue Plan of Care Treatment Plan: Bed Mobility, Education, Functional Activity Bg, Functional Strength, Gait, Safety, Therapeutic Exercise, Transfers Treatment Duration: Mar 03, 2021 Frequency: 11 times per week Estimated Hrs Per Day: .5 hour per day Patient and/or Family Agrees t: Yes Time/GCodes Time In: 805 Time Out: 847 Total Billed Treatment Time: 42 Total Billed Treatment 1 visit EX 15 min GT 15 min FA 12 min TONO CANO PT Feb 24, 2021 10:03
[2021-02-24 11:55] VITALS: BP 114/66
--- NOTE | 2021-02-24 13:52 | Occupational Ther Daily Note ---
OT Current Status-Daily Note Subjective 1150: OT attempt to tx, pt denies at this time. Pt AxO, upright in chair. Pt agrees to tx, states 5/10 pain bilateral knees. Mental Status/Objective Patient Orientation: Normal For Age Attachments: [place] ADL-Treatment Therapy Code Descriptions/Definitions Functional [place] Measure: 0=Not Assessed/NA 4=Minimal Assistance 1=Total Assistance 5=Supervision or Setup 2=Maximal Assistance 6=Modified [place] 3=Moderate Assistance 7=Complete IndependenceSCALE: Activities may be completed with or without assistive devices. 8-Zcymeiflfr-fzwzxih completes the activity by him/herself with no assistance from a helper. 5-Set-up or Clean-up Assistance-helper sets up or cleans up; patient completes activity. [place] assists only prior to or following the activity. 4-Supervision or Touching Assistance-helper provides verbal cues and/or touching/steadying and/or contact guard assistance as patient completes activity. Assistance may be provided throughout the activity or intermittently. 3-Partial/Moderate Assistance-helper does LESS THAN HALF the effort. [place] lifts, holds or supports trunk or limbs, but provides less than half the effort. 2-Substantial/Maximal Assistance-helper does MORE THAN HALF the effort. [place] lifts or holds trunk or limbs and provides more than half the effort. 4-Jazomennl-uxlqfo does ALL the effort. Patient does none of the effort to complete the activity. Or, the assistance of 2 or more helpers is required for the patient to complete the activity. If activity was not attempted, code reason: 7-Patient Refused. 9-Not Applicable-not attempted and the patient did not perform the activity before the current illness, exacerbation or injury. 10-Not Attempted due to Environmental Limitations-(lack of equipment, weather restraints, etc.). 88-Not Attempted due to Medical Conditions or Safety Concerns. 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 Completes sock doff/ donning with s/u and cues.) Other Treatment Pt threads undergarments as outlined. Pt attempts sit to stand with max A, unable 2* pain/ stiffness. Pt expresses has high rise recliner, easier to get in/out and home time clock repairer for assist. Pt doffs/ dons socks, sit to stand wi th PT instruction end of session and able to hike over hips with CGA. Pt is educated on ability to purchase sock aide/ dressing stick. Pt agrees, all needs met, left with PT end of session. Education OT Patient Education: Correct positioning, Modified ADL techniques, Progress toward Goal/Update tx plan, Purpose of tx/functional activities, Transfer techniques, Use of adapted equipment Teaching Recipient: Patient Teaching Methods: Demonstration, Discussion Response to Teaching: Verbalize Understanding, Return Demonstration OT [facility] Goals [facility] Goals Time Frame: Mar 03, 2021 Eating (QC): 6 Oral Hygiene (QC): 6 Toileting Hygiene (QC): 4 Shower/Bathe Self (QC): 4 Upper Body Dressing (QC): 6 Lower Body Dressing (QC): 4 On/Off Footwear (QC): 4 Additional Goals: 1-Demonstrate ADL Tasks, 2-Verbalize Understanding, 3-I mproveStrength/Bg 1=Demonstrate adherence to instructed precautions during ADL tasks. 2=Patient will verbalize/demonstrate understanding of assistive devices/modifications for ADL. 3=Patient will improve strength/tolerance for activity to enable patient to perform ADL's. OT Education/Plan Problem List/Assessment Assessment: Decreased Activ Tolerance, Dependent Transfers, Edema, Impaired I ADL's, Impaired Self-Care Skills Pt would benefit from short term skilled OT services in order to address concerns with ADL function upon returning home. Discharge Recommendations Plan/Recommendations: Continue POC Therapy Discharge Recommendati: Home & Family, Post Acute PT Treatment Plan/Plan of Care Treatment,Training & Education: Yes Patient would benefit from OT for education, treatment and training to promote independence in ADL's, mobility, safety and/or upper extremity function for ADL's. Plan of Care: ADL Retraining, Functional Mobility, UE Funct Exercise/Act Treatment Duration: Mar 03, 2021 Frequency: 5 times per week Estimated Hrs Per Day: .25 hour per day Rehab Potential: Fair Time/GCodes Start Time: 13:25 Stop Time: 13:38 Total Time Billed (hr/min): 13 Billed Treatment Time 1, ADL (13) SERA SIMEON OTR Feb 24, 2021 13:52
--- NOTE | 2021-02-24 14:19 | Physical Therapy Daily Note ---
PT Daily Note-Current Subjective Patient agrees to PT. Pain Numeric Pain Scale: 7 Location: Right, Left Location Body Site: Knee Pain Description: Acute Mental Status Patient Orientation: Normal For Age Transfers SCALE: Activities may be completed with or without assistive devices. 2-Gfyddapann-xvvxwyg completes the activity by him/herself with no assistance from a helper. 5-Set-up or Clean-up Assistance-helper sets up or cleans up; patient completes activity. [place] assists only prior to or following the activity. 4-Supervision or Touching Assistance-helper provides verbal cues and/or touching/steadying and/or contact guard assistance as patient completes a ctivity. Assistance may be provided throughout the activity or intermittently. 3-Partial/Moderate Assistance-helper does LESS THAN HALF the effort. [place] lifts, holds or supports trunk or limbs, but provides less than half the effort. 2-Substantial/Maximal Assistance-helper does MORE THAN HALF the effort. [place] lifts or holds trunk or limbs and provides more than half the effort. 3-Gtwcabbpq-ulruar does ALL the effort. Patient does none of the effort to complete the activity. Or, the assistance of 2 or more helpers is required for the patient to complete the activity. If activity was not attempted, code reason: 7-Patient Refused. 9-Not Applicable-not attempted and the patient did not perform the activity before the current illness, exacerbation or injury. 10-Not Attempted due to Environmental Limitations-(lack of equipment, weather restraints, etc.). 88-Not Attempted due to Medical Conditions or Safety Concerns. Sit to Stand (QC): 5 Chair/Vip-ud-Aywav Xfer(QC): 5 Weight Bearing Right Lower Extremity: Right Full Weight Bearing Left Lower Extremity: Left Full Weight Bearing Gait Training Does the Patient Walk?: Yes Distance: 250' Walk 10 feet (QC): 6 Walk 50 ft with 2 Turns(QC): 6 Walk 150 ft (QC): 6 Gait Assistive Device: FWW slow, antalgic Exercises Supine Ex: Ankle pumps, Quad Set Supine Reps: 15 (in recliner) Seated Therapy Exercises: Ankle pumps, Long arc quads Seated Reps: 15 (x 2 sets) Assessment Patient progressing with treatment plan. Patient to dismiss to home in a.m. PT Prison Goals Prison Goals PT Acrylic Fabricator Goals Time Frame: Mar 03, 2021 Roll Left & Right (QC): 6 Sit to Lying (QC): 6 Lying-Sitting on Side/Bed(QC): 6 Sit to Stand (QC): 6 Chair/Man-et-Wozqp Xfer(QC): 6 Toilet Transfer (QC): 6 Does the Patient Walk: Yes Walk 10 feet (QC): 6 Walk 50ft with 2 Turns (QC): 6 Walk 150 ft (QC): 6 Walking 10ft on Uneven Surface: 6 1 Step (curb) (QC): 4 4 Steps (QC): 4 PT Plan Treatment/Plan Treatment Plan: Continue Plan of Care Treatment Plan: Bed Mobility, Education, Functional Activity Bg, Functional Strength, Gait, Safety, Therapeutic Exercise, Transfers Treatment Duration: Mar 03, 2021 Frequency: 11 times per week Estimated Hrs Per Day: .5 hour per day Patient and/or Family Agrees t: Yes Time/GCodes Time In: 1338 Time Out: 1405 Total Billed Treatment Time: 27 Total Billed Treatment 1 visit EX 15 min GT 12 min TONO CANO PT Feb 24, 2021 14:19
[2021-02-24 15:32] VITALS: BP 132/61
--- NOTE | 2021-02-24 19:30 | DISCHARGE SUMMARY ---
DATE OF SERVICE: DATE OF DISCHARGE: 02/25/2021. DIAGNOSES: 1. Bilateral knee primary osteoarthritis. 2. Hypertension. 3. Seasonal allergies. 4. Psoriatic arthritis. 5. Osteoarthritis. 6. Sleep apnea. PROCEDURE: Bilateral total knee arthroplasty. SUMMARY: The patient is a 70-year-old gentleman who underwent a bilateral total knee arthroplasty on the day of admission. Postoperatively, he did well. At the time of discharge, his wound was clean and dry and no calf tenderness. Negative Homans sign. He was tolerating diet well and tolerating pain with oral pain medication. CONDITION AT DISCHARGE: Good. DISCHARGE DIET: Regular. FOLLOWUP: Followup is in three weeks. Home physical therapy will be arranged. DISCHARGE MEDICATIONS: Home medications, Percocet as needed for pain and one aspirin per day for 30 days. ACTIVITIES: Weightbearing as tolerated with a walker. Job ID: [id number] DocumentID: [id number] Dictated Date: 02/24/2021 07:08:00 Brick Sorter Date: 02/24/2021 19:29:25 Dictated By: BRYAN JIMENEZ MD
[2021-02-24 19:55] VITALS: BP 136/63
[2021-02-24 21:25] VITALS: BP 129/56
[2021-02-24] MEDS ORDERED: VANCOMYCIN INJECTION 0.1 MG in NS (IVPB) 250 ML IV SCH (21:45)
[2021-02-24] MEDS ORDERED: PIPERACILLIN/TAZO 4.5 GM/NS 100 ML IV ONE ×2 (22:00)
[2021-02-24] MEDS ORDERED: VANCOMYCIN 1 GM/NS 250 ML IVPB IV NR ×2 (22:00)
[2021-02-24 22:26] LABS: BASOPHILS % (AUTO) 0 % (0-10); EOSINOPHILS # (AUTO) 0.1 10^3/uL (0.0-0.3); EOSINOPHILS % (AUTO) 1 % (0-10); HEMATOCRIT 33 % (40-54); HEMOGLOBIN 10.7 g/dL (13.3-17.7); LYMPHOCYTES # (AUTO) 1.8 10^3/uL (1.0-4.0); LYMPHOCYTES % (AUTO) 17 % (12-44); MEAN CORPUSCULAR HEMOGLOBIN 32 pg (25-34); MEAN CORPUSCULAR HGB CONC 33 g/dL (32-36); MEAN CORPUSCULAR VOLUME 98 fL (80-99); MEAN PLATELET VOLUME 10.8 fL (9.0-12.2); MONOCYTES # (AUTO) 1.1 10^3/uL (0.0-1.0); MONOCYTES % (AUTO) 10 % (0-12); NEUTROPHILS # (AUTO) 7.5 10^3/uL (1.8-7.8); NEUTROPHILS % (AUTO) 71 % (42-75); PLATELET COUNT 161 10^3/uL (130-400); WHITE BLOOD COUNT 10.5 10^3/uL (4.3-11.0)
[2021-02-24 22:27] LABS: ALBUMIN 3.6 GM/DL (3.2-4.5); POTASSIUM 4.4 MMOL/L (3.6-5.0)
[2021-02-24 22:28] LABS: CALCIUM 8.4 MG/DL (8.5-10.1)
[2021-02-24 22:29] LABS: TOTAL PROTEIN 6.6 GM/DL (6.4-8.2)
[2021-02-24 22:31] LABS: BILIRUBIN,TOTAL 0.6 MG/DL (0.1-1.0)
[2021-02-24 22:33] LABS: CREATININE SERUM 1.81 MG/DL (0.60-1.30)
[2021-02-24] MEDS ORDERED: VANCOMYCIN 1000 MG/VIAL ONE (22:36)
[2021-02-24] MEDS ORDERED: NS IV 1000 ML 1,000 ML ONE (22:57)
[2021-02-24] MEDS ORDERED: NS IV 1000 ML 1,000 ML IV SCH (23:00)
[2021-02-24] MEDS ORDERED: VANCOMYCIN 1500 MG/NS 500 ML IVPB IV NR ×2 (23:00)
[2021-02-24] MEDS ORDERED: NS IV 500 ML 500 ML ONE (23:00)
[2021-02-25] VITALS: BP 146/86
[2021-02-25] MEDS: oxyCODONE/APAP 5/325MG (PERCOCET 5) TABLET PO PRN ×4 (00:05→07:59)
[2021-02-25] MEDS: NS IV 1000 ML 1,000 ML IV SCH ×2 (01:43→08:41)
[2021-02-25 04:00] VITALS: BP_SYST 147; BP_SYST 168; BP_DIAS 79; BP_DIAS 86
[2021-02-25] MEDS ORDERED: PIPERACILLIN/TAZOBACTAM (BULK) 4.5 GM in NS (IVPB) 100 ML IV SCH (04:00)
[2021-02-25] MEDS: MULTIVIT W/MINERALS TAB (THERAGRAN M) PO SCH (05:58)
[2021-02-25 06:18] LABS: HEMOGLOBIN 9.4 g/dL (13.3-17.7)
--- NOTE | 2021-02-25 07:07 | Progress Note ---
Standard Progress Note Progress Notes/Assess & Plan Date Seen by a Provider: Feb 25, 2021 Time Seen by a Provider: 07:04 Progress/Assessment & Plan post op check no complaints radiographs--HW well positioned without fracture BLE--2 plus DP pulse with brisk cap refill. Intact DF and PF of toes and ankle. Intact sensation to light touch throughout s/p BTKA mobilize as able Final Diagnosis patient had chills after his ice was freshened on his knees, he was covered with blankets and his thermostat was increased. He then became hot and flushed. [place] fine prior and has felt fine since. vaccinated against Covid and tested negative prior to surgery no complaints at all currently Vital Signs Date Time Temp Pulse Resp B/P (MAP) Pulse Ox O2 Delivery O2 Flow Rate FiO2 02/25/21 04:00 36.6 91 20 147/79 (101) 97 Nasal Cannula 3.00 02/25/21 01:00 101 02/25/21 00:00 37.5 90 18 146/86 (106) 97 Room Air 02/24/21 22:25 113 02/24/21 22:21 37.2 02/24/21 21:37 38.5 02/24/21 21:25 38.5 120 20 129/56 (80) 90 Room Air 02/24/21 20:35 Room Air 02/24/21 19:55 38.2 115 18 136/63 (87) 92 Room Air 02/24/21 19:00 93 Nasal Cannula 3.00 02/24/21 15:32 37.5 101 20 132/61 (84) 92 Room Air 02/24/21 11:55 36.0 96 20 114/66 (82) 96 Nasal Cannula 3.00 02/24/21 09:20 20 02/24/21 08:00 95 Nasal Cannula 3.00 02/24/21 07:54 35.7 89 20 120/59 (79) 95 Nasal Cannula 3.00 I & O 02/25/21 07:00 Intake Total 4835 ml Output Total 2025 ml Balance 2810 ml Laboratory Tests Test 02/24/21 22:05 02/25/21 06:01 Range/Units White Blood Count 10.5 4.3-11.0 10^3/uL Red Blood Count 3.32 L 4.30-5.52 10^6/uL Hemoglobin 10.7 L 9.4 L 13.3-17.7 g/dL Hematocrit 33 L 29 L 40-54 % Mean Corpuscular Volume 98 80-99 fL Mean Corpuscular Hemoglobin 32 25-34 pg Mean Corpuscular Hemoglobin Concent 33 32-36 g/dL Red Cell Distribution Width 13.3 10.0-14.5 % Platelet Count 161 130-400 10^3/uL Mean Platelet Volume 10.8 9.0-12.2 fL Immature Granulocyte % (Auto) 1 % Neutrophils (%) (Auto) 71 42-75 % Lymphocytes (%) (Auto) 17 12-44 % Monocytes (%) (Auto) 10 0-12 % Eosinophils (%) (Auto) 1 0-10 % Basophils (%) (Auto) 0 0-10 % Neutrophils # (Auto) 7.5 1.8-7.8 10^3/uL Lymphocytes # (Auto) 1.8 1.0-4.0 10^3/uL Monocytes # (Auto) 1.1 H 0.0-1.0 10^3/uL Eosinophils # (Auto) 0.1 0.0-0.3 10^3/uL Basophils # (Auto) 0.0 0.0-0.1 10^3/uL Immature Granulocyte # (Auto) 0.1 0.0-0.1 10^3/uL Sodium Level 133 L 135-145 MMOL/L Potassium Level 4.4 3.6-5.0 MMOL/L Chloride Level 99 98-107 MMOL/L Carbon Dioxide Level 21 21-32 MMOL/L Anion Gap 13 5-14 MMOL/L Blood Urea Nitrogen 19 H 7-18 MG/DL Creatinine 1.81 H 0.60-1.30 MG/DL Estimat Glomerular Filtration Rate 37 BUN/Creatinine Ratio 10 Glucose Level 197 H 70-105 MG/DL Lactic Acid Level 3.28 *H 0.50-2.00 MMOL/L Calcium Level 8.4 L 8.5-10.1 MG/DL Corrected Calcium 8.7 8.5-10.1 MG/DL Total Bilirubin 0.6 0.1-1.0 MG/DL Aspartate Amino Transf (AST/SGOT) 16 5-34 U/L Alanine Aminotransferase (ALT/SGPT) 34 0-55 U/L Alkaline Phosphatase 51 40-136 U/L Total Protein 6.6 6.4-8.2 GM/DL Albumin 3.6 3.2-4.5 GM/DL Knee incisions clean and dry. No DC no erythema no calf tenderness Neg Dago's s/p BTKA fever likely secondary to atelectasis DC abx DC home Focused Exam Lactate Level 02/24/21 03:07: Lactic Acid Level 1.13 02/24/21 22:05: Lactic Acid Level 3.28*H BRYAN JIMENEZ MD Feb 25, 2021 07:07
[2021-02-25] MEDS: ENOXAPARIN 30 MG/0.3 ML (LOVENOX) SYR SC SCH (07:59)
[2021-02-25] MEDS: lisINopril 20 MG (PRINIVIL) TABLET PO SCH (08:01)
[2021-02-25] MEDS: SENNA W/DOCUSATE (SENOKOT S) TABLET PO SCH (08:01)
[2021-02-25] MEDS: ASPIRIN E.C. 81 MG (ECOTRIN) TAB PO SCH (08:01)
--- NOTE | 2021-02-25 08:21 | Progress Note ---
Subjective HPI/CC On Admission Date Seen by Provider: Feb 25, 2021 Time Seen by Provider: 06:30 Pt is a 70yoCM with a PMH of CANDE and HTN who was admitted for bilateral TKA. I am consulted for medical management. He underwent surgery on 02/22. He reports he is doing well. Pain is present but well controlled. Has not yet had a BM but did pass gas last night. Was already up working with therapy. Subjective/Events-last exam Overnight had fever. Antibiotics started and blood cultures drawn. this morning patient has no complaints. Feeling well. No pain or shortness of breath. No recurrent fever. Focused Exam Lactate Level 02/24/21 03:07: Lactic Acid Level 1.13 02/24/21 22:05: Lactic Acid Level 3.28*H Objective Exam Vital Signs Vital Signs Date Time Temp Pulse Resp B/P (MAP) Pulse Ox O2 Delivery O2 Flow Rate FiO2 02/25/21 07:00 98 02/25/21 04:00 36.6 20 147/79 (101) 97 Nasal Cannula 3.00 Capillary Refill : General Appearance: No Apparent Distress, WD/WN HEENT: PERRL/EOMI Neck: Full Range of Motion Respiratory: Lungs Clear, Normal Breath Sounds, No Accessory Muscle Use Cardiovascular: Regular Rate, Rhythm, No Edema Gastrointestinal: Normal Bowel Sounds Skin: Normal Color, Warm/Dry Results/Procedures Lab Laboratory Tests 02/24/21 22:05 02/25/21 06:01 Patient resulted labs reviewed. Assessment/Plan Assessment and Plan Assess & Plan/Chief Complaint OA s/p bilateral TKA Management per primary pain regimen bowel regimen lovenox PT/OT Fever likely post-op. HTN BP is improved. On home medication. Dispo: Dr Fitzgerald already wrote for home health orders JAMES YANEZ MD Feb 25, 2021 08:21
[2021-02-25 08:42] VITALS: BP 135/64
--- NOTE | 2021-02-25 09:06 | Physical Therapy Daily Note ---
PT Daily Note-Current Subjective Pt supine in bed upon arrival to room, agreeable to PT treatment. He reports he has pain in (B) knees but does not rate this date. Appearance Following session, pt reclined in bed, with CPM on RLE. 75 deg flex - -5 deg extension on CPM. Call light and tray within reach, and RN present in room fo llowing session. Mental Status Patient Orientation: Person, Place, Situation Attachments: IV Transfers SCALE: Activities may be completed with or without assistive devices. 5-Sjwbripsje-inlbuuy completes the activity by him/herself with no assistance from a helper. 5-Set-up or Clean-up Assistance-helper sets up or cleans up; patient completes activity. [place] assists only prior to or following the activity. 4-Supervision or Touching Assistance-helper provides verbal cues and/or touching/steadying and/or contact guard assistance as patient completes activity. Assistance may be provided throughout the activity or intermittently. 3-Partial/Moderate Assistance-helper does LESS THAN HALF the effort. [place] lifts, holds or supports trunk or limbs, but provides less than half the effort. 2-Substantial/Maximal Assistance-helper does MORE THAN HALF the effort. [place] lifts or holds trunk or limbs and provides more than half the effort. 4-Hvfelqpgr-uqinus does ALL the effort. Patient does none of the effort to complete the activity. Or, the assistance of 2 or more helpers is required for the patient to complete the activity. If activity was not attempted, code reason: 7-Patient Refused. 9-Not Applicable-not attempted and the patient did not perform the activity before the current illness, exacerbation or injury. 10-Not Attempted due to Environmental Limitations-(lack of equipment, weather restraints, etc.). 88-Not Attempted due to Medical Conditions or Safety Concerns. Lying to Sitting/Side of Bed(Q: 5 Sit to Stand (QC): 5 Weight Bearing Right Lower Extremity: Right Full Weight Bearing Left Lower Extremity: Left Full Weight Bearing Gait Training Distance: 200' Walk 150 ft (QC): 6 Gait Assistive Device: FWW Pt with slow, guarded antalgic gait Assessment Current Status: Good Progress Pt with good progress with mobility. Will DC home this date PT Earth Science Faculty Member Goals Earth Science Faculty Member Goals PT Earth Science Faculty Member Goals Time Frame: Mar 03, 2021 Roll Left & Right (QC): 6 Sit to Lying (QC): 6 Lying-Sitting on Side/Bed(QC): 6 Sit to Stand (QC): 6 Chair/Zko-th-Efulp Xfer(QC): 6 Toilet Transfer (QC): 6 Does the Patient Walk: Yes Walk 10 feet (QC): 6 Walk 50ft with 2 Turns (QC): 6 Walk 150 ft (QC): 6 Walking 10ft on Uneven Surface: 6 1 Step (curb) (QC): 4 4 Steps (QC): 4 PT Plan Problem List Problem List: Functional Strength, Gait, ROM Treatment/Plan Treatment Plan: Continue Plan of Care, Discontinue PT, goals met Treatment Plan: Bed Mobility, Education, Functional Activity Bg, Functional Strength, Gait, Safety, Therapeutic Exercise, Transfers Treatment Duration: Mar 03, 2021 Frequency: 11 times per week Estimated Hrs Per Day: .5 hour per day Patient and/or Family Agrees t: Yes Time/GCodes Time In: 725 Time Out: 756 Total Billed Treatment Time: 31 Total Billed Treatment 1 visit GT (20') FA (11') LUZ BENEDICT PT Feb 25, 2021 09:06
[2021-02-25 12:10] VITALS: BP 135/64
[2021-02-25] MEDS ORDERED: VANCOMYCIN 1500 MG/NS 500 ML IVPB IV SCH ×2 (16:00)
== END 2021-02-25 12:10 | disposition home or self-care (01) | DRG 462 ==
LOC: 4TH 05:59 → SURG 06:00 → 4TH 11:09
PROVIDERS: ADMIT Orthopaedic Surgery; ATTEND Orthopaedic Surgery
PROC: 0SRD0J9 Replacement of Left Knee Joint with Synthetic Substitute, Cemented, Open Approach (ICD-10-PCS; 2021-02-22)
PROC: 0SRC0J9 Replacement of Right Knee Joint with Synthetic Substitute, Cemented, Open Approach (ICD-10-PCS; principal; 2021-02-22 07:30)
DX: M17.0 Bilateral primary osteoarthritis of knee (principal); J98.11 Atelectasis; I10 Essential (primary) hypertension; L40.50 Arthropathic psoriasis, unspecified; G47.33 Obstructive sleep apnea (adult) (pediatric); H40.9 Unspecified glaucoma; Z87.891 Personal history of nicotine dependence
CPT/HCPCS: 36415; 80053; 83605; 85014; 85018; 85025; 86850; 86900; 86901; 87040; 87081; 94760

== ENCOUNTER → 2021-11-02 | Outpatient (CLI) | payer MEDICARE ==
--- NOTE | 2021-11-02 13:20 | Diagnostic Imaging Report ---
INDICATION: Elevated levels of liver transaminases. PROCEDURE: Ultrasound abdomen complete. TECHNIQUE: Multiple real-time grayscale images were obtained of the abdomen in various projections. COMPARISON: None available. FINDINGS: The liver has diffuse increased echogenicity with diminished sound transmission indicative of hepatic steatosis. In the left hemiliver, there is a circumscribed anechoic cyst measuring up to 5.2 cm. No solid hepatic mass is appreciated. Portal vein is patent with normal direction of flow. The liver measures 19 cm in length. The gallbladder is normally filled without stones or sludge. No gallbladder wall thickening or pericholecystic fluid. The common bile duct is not well seen but appears to measure approximately 0.5 cm in diameter. The pancreas is obscured by overlying bowel gas. Both kidneys are normal in size without hydronephrosis. The aorta and IVC are normal where visualized. The spleen is enlarged measuring 15 cm. No ascites. IMPRESSION: 1. Hepatomegaly with diffuse hepatic steatosis. 2. Splenomegaly. Dictated by: Dictated on workstation # [id number]
== END ==
LOC: RAD FS 07:34
PROVIDERS: ATTEND Family Medicine
DX: R16.2 Hepatomegaly with splenomegaly, not elsewhere classified (principal); K76.0 Fatty (change of) liver, not elsewhere classified
CPT/HCPCS: 76700